=== PATIENT | female | born 1955 | race Two or more races ===

== ENCOUNTER → 2019-07-04 | Outpatient (CLI) | payer OTHER | END | disposition home or self-care (01) | LOC: SONOGRAMA 08:54 | DX: E04.1 Nontoxic single thyroid nodule (principal) ==

== ENCOUNTER 2020-05-22 09:29 | Outpatient (CLI) | payer OTHER | END 2020-05-22 16:44 | disposition home or self-care (01) | LOC: OFIC 805 09:29 | PROVIDERS: ATTEND Otolaryngology Otology & Neurotology | DX: H93.A2 Pulsatile tinnitus, left ear (principal); R09.82 Postnasal drip; J31.0 Chronic rhinitis; D44.7 Neoplasm of uncertain behavior of aortic body and other paraganglia ==

== ENCOUNTER 2020-06-19 09:16 | Outpatient (CLI) | payer OTHER | END 2020-06-19 10:20 | disposition home or self-care (01) | LOC: OFIC 805 09:16 | PROVIDERS: ATTEND Otolaryngology Otology & Neurotology | DX: J31.0 Chronic rhinitis (principal); R09.82 Postnasal drip; H93.A2 Pulsatile tinnitus, left ear; D44.7 Neoplasm of uncertain behavior of aortic body and other paraganglia ==

== ENCOUNTER → 2020-09-18 | Outpatient (CLI) | payer OTHER | END | disposition home or self-care (01) | LOC: OFIC 805 09-16 09:00 | PROVIDERS: ATTEND Otolaryngology Otology & Neurotology | DX: D44.7 Neoplasm of uncertain behavior of aortic body and other paraganglia (principal); H93.A2 Pulsatile tinnitus, left ear; J31.0 Chronic rhinitis; R49.0 Dysphonia; J38.01 Paralysis of vocal cords and larynx, unilateral ==

== ENCOUNTER 2020-10-10 09:01 | Outpatient (CLI) | payer OTHER | END 2020-10-10 09:26 | disposition home or self-care (01) | LOC: OFIC 805 09:01 | PROVIDERS: ATTEND Otolaryngology Otology & Neurotology | DX: D44.7 Neoplasm of uncertain behavior of aortic body and other paraganglia (principal); H93.A2 Pulsatile tinnitus, left ear; R09.82 Postnasal drip; J38.01 Paralysis of vocal cords and larynx, unilateral ==

== ENCOUNTER 2021-07-05 09:54 | Day surgery (SDC) | payer OTHER ==
[~2021-07-05 09:54] MED LIST: COZAAR100 MG PO; HUMLOG; JANUVIA100 MG PO; LANTUS; SIMVASTA PO
[2021-07-05] MEDS ORDERED: DUI500 PO (18:29)
[2021-07-05] MEDS ORDERED: ULTRACET PO (18:29)
== END 2021-07-05 23:35 | disposition home or self-care (01) ==
LOC: CIR.AMB 09:54
PROVIDERS: ATTEND Orthopaedic Surgery Sports Medicine
DX: S83.242A Other tear of medial meniscus, current injury, left knee, initial encounter (principal); Z20.822 Contact with and (suspected) exposure to COVID-19